=== PATIENT | male | born 1980 | race Hispanic/Latino ===

== ENCOUNTER 2017-09-27 17:08 | Emergency (ER) | payer OTHER ==
[2017-09-27] MEDS ORDERED: Sodium Chloride 0.9% 1,000 ML IV STA ×2 (17:50→20:02)
[2017-09-27 18:28] LABS: BASO % 0.3 % (0.0-2.0); HEMOGLOBIN 15.9 g/dL (12.0-18.0); LYMPH # 0.5 K/uL (1.0-4.3); LYMPH % 5.2 % (20.0-40.0); MEAN CORPUSCULAR HEMOGLOBIN 33.2 pg (27.0-31.0); MEAN CORPUSCULAR HGB CONC 36.1 g/dL (33.0-37.0); MEAN PLATELET VOLUME 8.8 fl (7.2-11.7); MONO # 0.3 K/uL (0.0-0.8); MONO % 3.4 % (0.0-10.0); NEUT % 91.1 % (50.0-75.0); NRBC % 0.1 % (0.0-0.0); PLATELET COUNT 186 K/uL (130-400); RBC 4.79 Mil/uL (4.40-5.90); RED CELL DISTRIBUTION WIDTH 12.3 % (11.5-14.5); WHITE BLOOD COUNT 9.8 K/uL (4.8-10.8)
[2017-09-27 18:33] LABS: ALB/GLOB RATIO 1.5 (1.0-2.1); ALBUMIN 4.9 g/dL (3.5-5.0); ALT/SGPT 37 U/L (21-72); AST/SGOT 34 U/L (17-59); BLOOD UREA NITROGEN 11 mg/dl (9-20); CALCIUM 9.2 mg/dL (8.4-10.2); GFR AFRICAN-AMERICAN > 60; GFR NON-AFRICAN AMERICAN > 60; LIPASE 84 U/L (23-300)
--- NOTE | 2017-09-27 20:07 | ED PDOC ---
HPI:Nausea, Vomiting, Diarrhea Chief Complaint (Provider): Vomiting <Cheli Moreno - Last Filed: 09/27/17 20:06> <Val Menard PA-C - Last Filed: 09/27/17 21:39> Time Seen by Provider: 09/27/17 17:21 Chief Complaint (Nursing): GI Problem Past Medical History Vital Signs: Last Vital Signs Temp 99.4 F 09/27/17 17:14 Pulse 112 H 09/27/17 17:14 Resp 16 09/27/17 17:14 BP 145/89 09/27/17 17:14 Pulse Ox 98 09/27/17 17:14 - Medical History PMH: Anxiety, Bipolar Disorder <Cheli Moreno - Last Filed: 09/27/17 20:06> Vital Signs: Last Vital Signs Temp 99.8 F H 09/27/17 21:19 Pulse 105 H 09/27/17 21:19 Resp 18 09/27/17 21:19 BP 132/86 09/27/17 21:19 Pulse Ox 98 09/27/17 21:19 <Val Menard PA-C - Last Filed: 09/27/17 21:39> - Home Medications Home Medications: Ambulatory Orders Medication Instructions Recorded Alprazolam [Xanax] 0.5 mg PO PRN PRN 09/27/17 Dextroamphetamine/Amphetamine 1 tab PO DAILY PRN 09/27/17 [Adderall 10 mg Tablet] Ondansetron ODT [Zofran ODT] 4 mg PO DAILY PRN #20 odt 09/27/17 - Allergies Allergies/Adverse Reactions: Allergies Allergy/AdvReac Type Severity Reaction Status Date / Time No Known Allergies Allergy Verified 09/27/17 17:15 - Laboratory Results Result Diagrams: 09/27/17 18:20 09/27/17 18:20 - ECG O2 Sat by Pulse Oximetry: 98 <Cheli Moreno - Last Filed: 09/27/17 20:06> - Laboratory Results Result Diagrams: 09/27/17 18:20 09/27/17 18:20 <Val Menard PA-C - Last Filed: 09/27/17 21:39> Medical Decision Making Medical Decision Making: Temp 100.9 on re-evaluation. 2nd liter IV fluids, tylenol and influenza ordered. Endorsed at 1999. <Cheli Moreno - Last Filed: 09/27/17 20:06> Medical Decision Making: Repeat T 99.8 Rapid flu (-) On re-evaluation, patient reports improvement of symptoms, denies any abdominal pain or nausea, he tolerated a full bottle of gatorade. On exam, patient remains AAOx3, in no acute distress. Lungs clear to auscultation, cardiac RRR, abdomen soft, non-tender, repeat neuro exam shows no focal findings. Diagnostic results d/w the patient in great detail. Diagnosis of gastroenteritis d/w the patient. Based on history, exam and diagnostic results, plan will be for outpatient follow up. Patient instructed to follow-up with pmd in 1-2 days without fail. Advised to take medication as prescribed. Return to the emergency room at any time for any new or worsening symptoms. Patient states he fully agrees with and understands discharge instructions. States that he agrees with the plan and disposition. Verbalized and repeated discharge instructions and plan. I have given the patient opportunity to ask any additional questions. <Val Menard PA-C - Last Filed: 09/27/17 21:39> Disposition <Cheli Moreno - Last Filed: 09/27/17 20:06> - Patient ED Disposition Is Patient to be Admitted: No Counseled Patient/Family Regarding: Studies Performed, Diagnosis, Need For Followup, Rx Given - Disposition Disposition: Routine/Home Disposition Time: 21:38 <Val Menard PA-C - Last Filed: 09/27/17 21:39> - Clinical Impression Clinical Impression: Gastroenteritis, Dehydration - Disposition Condition: IMPROVED Additional Instructions: Thank you for letting us take care of you today. You were treated for gastroenteritis. The emergency medical care you received today was directed at your acute symptoms. If you were prescribed any medication, please fill it and take as directed. It may take several days for your symptoms to resolve. Return to the Emergency Department if your symptoms worsen, do not improve, or if you have any other problems. Please contact your doctor in 2 days for re-evaluation and follow up. Bring any paperwork you were given at discharge with you along with any medications you are taking to your follow up visit. Our treatment cannot replace ongoing medical care by a primary care provider (PCP) outside of the emergency department. Thank you for allowing the [facility] team to be part of your care today. 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 <Val Menard PA-C - Last Filed: 09/27/17 21:39>
[2017-09-27 20:14] VITALS: RESP 18
[2017-09-27 21:19] VITALS: BP 132/86; PULSE 105; TEMP 99.8; O2SAT 98
[2017-09-28 03:53] LABS: LYMPHOCYTE 9 % (20-50); MONOCYTE 3 % (0-10); NEUTROPHIL 88 % (42-75); TOTAL CELLS COUNTED 100
[2017-09-28 04:08] LABS: PLATELET ESTIMATE NORMAL (NORMAL)
--- NOTE | 2017-10-01 08:05 | CARD ---
APPROVED REPORT EKG Measurement Heart [id number] <Conclusion> Sinus tachycardia Otherwise normal ECG
== END 2017-09-27 21:46 | disposition home or self-care (01) ==
LOC: H.ER 17:08
DX: K52.9 Noninfective gastroenteritis and colitis, unspecified (principal); E86.0 Dehydration; F31.9 Bipolar disorder, unspecified; F41.9 Anxiety disorder, unspecified
CPT/HCPCS: 80053; 83690; 85025; 87804; 96361; 96374; 96375; 99283; J2060; J2405; J7040